=== PATIENT | female | born 1960 | race Caucasian/White ===

== ENCOUNTER 2017-03-08 07:54 | Emergency (ER) | payer OTHER ==
[~2017-03-08] VITALS: Ht 157.5 cm; Wt 71.7 kg
[2017-03-08 08:55] LABS: HEMATOCRIT 36.9 % (36.0-46.0); MCH 29.9 PG (29.0-34.0); MCHC 33.3 G/DL (30.0-36.0); MCV 89.6 FL (83-99); MEAN PLAT.VOLUME 10.3 uM^3 (9.5-12.4); PLATELET COUNT 264 K/uL (156-360); RED BLOOD COUNT 4.12 M/uL (3.80-5.20); WHITE BLOOD COUNT 5.3 K/uL (4.1-10.2)
[2017-03-08 09:03] LABS: CHLORIDE 105 mEq/L (99-109); POTASSIUM 4.2 mEq/L (3.7-5.4); SODIUM 139 mEq/L (136-147)
[2017-03-08 09:05] LABS: GLUCOSE 98 mg/dL (70-99)
[2017-03-08 09:06] LABS: ANION GAP 8 MEQ/L (2-14)
[2017-03-08 09:09] LABS: ALKALINE PHOSPHATASE 61 IU/L (3-129); GFR ESTIMATE (CALCULATED) > 59 mL/min/
[2017-03-08 09:10] LABS: UREA NITROGEN (BUN) 14 mg/dL (9-23)
[2017-03-08 09:12] LABS: LIPASE 43 U/L (1.0-51.0)
[2017-03-08 09:19] LABS: TROP-I INTERPRETATION NEGATIVE; TROPONIN-I < 0.01 ng/mL (0.0-0.30)
[2017-03-08] MEDS ORDERED: NAPROXEN500 MG PO (11:38)
[2017-03-08 12:25] LABS: TROP-I INTERPRETATION NEGATIVE; TROPONIN-I < 0.01 ng/mL (0.0-0.30)
[2017-03-08 13:46] VITALS: BP 153/87
== END 2017-03-08 13:47 | disposition home or self-care (01) ==
LOC: EME 07:54
PROVIDERS: Physician Assistant
DX: R07.9 Chest pain, unspecified (principal); Z87.891 Personal history of nicotine dependence
CPT/HCPCS: 71020; 80053; 83690; 84484; 85027; 93005; 99281; 99284; J1885